=== PATIENT | female | born 1990 | race Caucasian/White ===

== ENCOUNTER 2017-05-15 13:12 | Emergency (ER) | payer MEDICAID ==
[2017-05-15] MEDS: HYDROCODONE/APAP (5/325) TAB PO (14:30)
== END 2017-05-15 17:51 | disposition home or self-care (01) ==
LOC: FTE 13:12
DX: M79.602 Pain in left arm (principal); M79.605 Pain in left leg; M25.552 Pain in left hip; R51 Headache
CPT/HCPCS: 70450; 72040; 73030; 73060; 73510; 73550; 81025; 99284-25